=== PATIENT | male | born 1995 | race African-American/Black ===

== ENCOUNTER 2017-10-06 20:35 | Emergency (ER) | payer SELFPAY ==
[2017-10-06 21:18] LABS: Bilirubin Small (Negative); Blood, Urine Negative (Negative); Clarity CLOUDY (Clear); Glucose, Urine (Dipstick) Negative (Negative); Leukocyte Moderate (Negative); Nitrite Negative (Negative); Protein, Urine (Dipstick) Trace mg/dL (Neg-Trace); Specific Gravity, Urine 1.031 (1.002-1.036); pH, Urine 5.5 (5.0-9.0)
[2017-10-06 21:19] LABS: Bacteria/HPF None Seen HPF (None Seen); Hyaline Casts/LPF 0-3 HYALINE CAST LPF (0-3 Hyaline); Pathc Cast-AUWi Flag 0.29 (0-2.49); RBC/HPF 0-3 HPF (0-3); Squamous Epithelial None Seen HPF (0-3)
[2017-10-06] MEDS ORDERED: Lidocaine 1% (PF) 30 ML VIAL ONE (21:54)
[2017-10-06] MEDS ORDERED: Azithromycin 250 MG TAB ONE (21:54)
[2017-10-06] MEDS ORDERED: cefTRIAXone\\ROCEPHIN 250 MG VIAL ONE (21:54)
[2017-10-06] MEDS ORDERED: Ondansetron ODT 4 MG TAB ONE (21:54)
[2017-10-08 23:44] LABS: Chlamydia by PCR DETECTED (NotDetected); GC by PCR DETECTED (NotDetected)
== END 2017-10-06 22:31 | disposition home or self-care (01) ==
LOC: ERS 20:35
DX: N34.2 Other urethritis (principal)
CPT/HCPCS: 81003; 81015; 87491; 87591; 96372; J0696; J2001; Q0162

== ENCOUNTER 2017-11-19 20:38 | Emergency (ER) | payer SELFPAY | END 2017-11-19 21:18 | disposition home or self-care (01) | LOC: ERS 20:38 | DX: J02.9 Acute pharyngitis, unspecified (principal) | CPT/HCPCS: 99282 ==